=== PATIENT | male | born 1940 | race Caucasian/White ===

== ENCOUNTER → 2018-04-27 | Outpatient (CLI) | payer MEDICARE, OTHER ==
[~2018-04-27] MED LIST: ACET-1748 PO; ACY15T TOP; ASPI-1471 PO; CALC-1088 PO; CEP500 PO; CHOL100060 PO; CITA-145 PO; CYCL10TA29 PO; FAM20 PO; IBU600 PO; KET10 PO; LOR5/325 PO; LOSA25TA50 PO; MESA400T PO; MULT1CAP59 PO; NIACIN PO; OXYGEN INH; SIMV-42 PO; SULF500T48 PO; TEST100V6 IM; TRAZ-133 PO; UBID100C48 PO; VIT B-12 SL; [UNRECOGNIZED DRUG - CODE] RC
== END ==
LOC: RESP 00:57
PROVIDERS: ATTEND Internal Medicine
DX: J98.4 Other disorders of lung (principal); R09.02 Hypoxemia
CPT/HCPCS: 94060; 94726; 94729

== ENCOUNTER 2019-03-19 14:33 | Outpatient (RCR) | payer MEDICARE, OTHER ==
[~2019-03-19 14:33] MED LIST changes: -LOSA25TA50 PO; +LOSA25TA57 PO
--- NOTE | 2019-03-19 17:37 | RADIOLOGY IMAGING REPORT ---
FACILITY: [facility] - [place] PATIENT NAME: Ray Greenfield : 1940 MR: [id number] V: [id number] EXAM DATE: ORDERING PHYSICIAN: RAHEL GROSS TECHNOLOGIST: Location: [facility] [place] Patient: Ray Greenfield : 1940 Visit/Account:[id number] Date of Sevice: 03/19/2019 EXAMINATION: CT Chest Without Contrast 03/19/2019 2:00 PM HISTORY: Cystic/bullous disease of the lung. ILD. TECHNIQUE: Spiral scan was obtained through the chest without contrast. High-resolution sequencing was done as well as prone expiratory imaging. One of the following dose optimization techniques was utilized in the performance of this exam: Autom ated exposure control; adjustment of the mA and/or kV according to the patient's size; or use of an i terative reconstruction technique. Specific details can be referenced in the facility's radiology C T exam operational policy. COMPARISON STUDIES: 07/11/2017. FINDINGS: Lungs / pleura: Lungs again appear to show what is cystic or bullous lucencies without defined piedra, with mild interval progression. Mild reticular markings are again shown in the right upper lobe vicki trally and in the inferior posterolateral aspect as well as within both lower lobes with a relatively similar distribution to previous. There has been previous biopsy in the left lung base. With expir atory imaging there is some mosaic lucency or air trapping most notably medially in the right apex. No substantial bronchiectasis. Mediastinum / rakan: negative Heart / pericardium: negative Vessels: Atherosclerosis including mild coronary calcification. Musculoskeletal / Body wall: Degenerative changes. Lymph node assessment: Stable mediastinal lymph nodes. Lower neck: negative Upper abdomen: negative IMPRESSION: Cystic or bullous process in the lungs with mild progression comparing with 2017. Associated reticul ar parenchymal markings are little changed. Report Dictated By: Rico Trejo MD at 03/19/2019 5:20 PM Report E-Signed By: Rico Trejo MD at 03/19/2019 5:32 PM WSN:TRA
== END 2019-03-19 18:00 | disposition home or self-care (01) ==
LOC: CT 14:33
PROVIDERS: ATTEND Internal Medicine
DX: R91.8 Other nonspecific abnormal finding of lung field (principal)
CPT/HCPCS: 71250

== ENCOUNTER → 2019-03-29 | Outpatient (CLI) | payer MEDICARE, OTHER | LOC: US 00:19 | PROVIDERS: ATTEND Internal Medicine | DX: I07.1 Rheumatic tricuspid insufficiency (principal) | CPT/HCPCS: 93306 ==

== ENCOUNTER → 2019-05-29 | Outpatient (CLI) | payer MEDICARE, OTHER ==
--- NOTE | 2019-05-29 13:47 | RADIOLOGY IMAGING REPORT ---
FACILITY: [facility] - [place] PATIENT NAME: Ray Greenfield : 1940 MR: [id number] V: [id number] EXAM DATE: ORDERING PHYSICIAN: ABRAM ANG TECHNOLOGIST: Location: [facility] Patient: Ray Greenfield : 1940 Visit/Account:[id number] Date of Sevice: 05/29/2019 Exam type: CHEST PA LAT History: Lymphadenopathy, history of cysts and lungs, on O2 supplementation Comparison: April 02, 2014. Findings: Lungs are free of acute effusions, infiltrates or edema. The cardiac silhouette is normal in size. The trachea is in midline. There are spondylotic changes of the thoracic spine. IMPRESSION: 1. No acute cardiac pulmonary process is seen Report Dictated By: Faye Baeza MD at 05/29/2019 1:39 PM Report E-Signed By: Faye Baeza MD at 05/29/2019 1:41 PM WSN:[place]
== END ==
LOC: RAD 11:26
PROVIDERS: ATTEND Nurse Practitioner Family
DX: R59.1 Generalized enlarged lymph nodes (principal)
CPT/HCPCS: 71046

== ENCOUNTER → 2019-06-01 | Outpatient (CLI) | payer MEDICARE, OTHER ==
[2019-06-01 12:54] LABS: PLATELET COUNT, AUTOMATED 224 K/uL (150-450)
== END ==
LOC: LAB 12:36
PROVIDERS: ATTEND Internal Medicine Medical Oncology
DX: D72.829 Elevated white blood cell count, unspecified (principal)
CPT/HCPCS: 36415; 85025